=== PATIENT | male | born 1985 | race Caucasian/White ===

== ENCOUNTER 2017-06-17 20:07 | Observation (INO) | payer SELFPAY ==
[~2017-06-17] VITALS: Ht 180.3 cm; Wt 70.0 kg
[2017-06-17 20:10] VITALS: BP 121/64; PULSE 119; RESP 20; TEMP 99; O2SAT 97
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
[2017-06-17] MEDS ORDERED: SODIUM CHLOR 0.9% 1000 ML INJ 1,000 ML IV ONE (20:30)
[2017-06-17 20:43] LABS: AUTOMATED NEUTROPHIL # 5.8 TH/MM3 (1.8-7.7); BASOPHIL % 0.4 % (0.0-2.0); EOSINOPHIL # 0.1 TH/MM3 (0-0.4); EOSINOPHIL % 1.4 % (0.0-4.0); HEMATOCRIT 46.3 % (39.0-51.0); HEMO FLAGS DIFF FINAL; LYMPH % 15.5 % (9.0-44.0); LYMPHOCYTE # 1.2 TH/MM3 (1.0-4.8); MEAN CELL VOLUME 93.6 FL (80.0-100.0); MEAN CORPUSCULAR HEMOGLOBIN 31.5 PG (27.0-34.0); MEAN CORPUSCULAR HGB CONC 33.7 % (32.0-36.0); MONO % 8.2 % (0.0-8.0); NEUT % 74.5 % (16.0-70.0); PLATELET COUNT 323 TH/MM3 (150-450); RED BLOOD COUNT 4.94 MIL/MM3 (4.50-5.90); RED CELL DISTRIBUTION WIDTH 13.7 % (11.6-17.2); WHITE BLOOD COUNT 7.8 TH/MM3 (4.0-11.0)
[2017-06-17 21:01] LABS: PROTHROMBIN TIME - PATIENT 10.7 SEC (9.8-11.6)
[2017-06-17 21:37] LABS: BICARBONATE 22.9 MEQ/L (21.0-32.0); POTASSIUM 3.7 MEQ/L (3.5-5.1)
[2017-06-17 21:45] VITALS: BP 130/60; PULSE 99; RESP 18; O2SAT 98
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
[2017-06-17 22:47] VITALS: BP 117/52; PULSE 92; RESP 16; O2SAT 99
[2017-06-17 23:49] VITALS: BP 114/51; PULSE 86; RESP 16; O2SAT 99
[2017-06-18] VITALS (11 sets, daily range): BP systolic 113–133; BP diastolic 58–75; PULSE 64–98; RESP 16–20; TEMP 97.8–98.6; O2SAT 95–98
[2017-06-18] MEDS ORDERED: LACTULOSE SYRUP 20 GM/30 ML CUP PO PRN (03:15)
[2017-06-18] MEDS ORDERED: HALOPERIDOL LACTATE 5 MG/ML AMP IM PRN (03:15)
[2017-06-18] MEDS ORDERED: MAGNESIUM HYDROXIDE SUSP 30 ML CUP PO PRN (03:15)
[2017-06-18] MEDS ORDERED: BISACODYL 10 MG SUPP RECTAL PRN (03:15)
[2017-06-18] MEDS ORDERED: SODIUM CHLORIDE 0.9% FLUSH 10 ML FLUSH IV FLUSH PRN (03:15)
[2017-06-18] MEDS ORDERED: FLUMAZENIL 0.5 MG/5 ML VIAL IV PUSH PRN (03:15)
[2017-06-18] MEDS ORDERED: ACETAMINOPHEN 325 MG TAB PO PRN (03:15)
[2017-06-18] MEDS ORDERED: SENNOSIDES 8.6 MG TAB PO PRN (03:15)
[2017-06-18] MEDS ORDERED: LORazepam 2 MG TAB PO PRN (03:15)
[2017-06-18] MEDS ORDERED: ONDANSETRON HCL 4 MG/2 ML VIAL IVP PRN (03:15)
[2017-06-18] MEDS ORDERED: LORazepam 2 MG/ML VIAL IV PUSH PRN ×5 (03:15)
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
[2017-06-18] MEDS: SODIUM CHLOR 0.9% 1000 ML INJ 1,000 ML IV SCH ×3 (03:28→23:53)
[2017-06-18] MEDS: THIAMINE INJ 100 MG in SODIUM CHLORIDE 0.9% INJ 100 ML IV SCH (07:19)
--- NOTE | 2017-06-18 07:41 | EKG ---
Date Performed: 06/17/2017 Time Performed: 20:20:44 PTAGE: 89 years EKG: SINUS TACHYCARDIA ABNORMAL RHYTHM ECG NO PREVIOUS TRACING DOCTOR: Grayson Curry Interpretating Date/Time 06/18/2017 07:40:02
[2017-06-18] MEDS: FOLIC ACID 1 MG TAB PO SCH (08:03)
[2017-06-18] MEDS: MULTIVITAMINS/MINERALS THERAPEUTIC TAB PO SCH (08:03)
[2017-06-18] MEDS: DOCUSATE SODIUM 50 MG/SENNA 8.6 MG TAB PO SCH ×2 (08:03→20:14)
[2017-06-18] MEDS: SODIUM CHLORIDE 0.9% FLUSH 10 ML FLUSH IV FLUSH SCH ×2 (08:04→20:14)
[2017-06-18] MEDS: LORazepam 1 MG TAB PO PRN ×4 (11:50→23:46)
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
--- NOTE | 2017-06-18 19:26 | MG ---
cc: MARYLU MUNROE M.D. Lab No: Date: Age: Sex: M Race: REQUESTED BY: Neyda Reza. HISTORY: An EEG was obtained on this man with a history of seizures. DESCRIPTION OF THE RECORD: The patient is asleep and there are sleep spindles, beta activity and some K complexes. There is occasional brief awakening and alpha rhythms are seen bilaterally symmetrically. Photic stimulation disclosed no change. INTERPRETATION: Normal asleep EEG. MD DANGELO Salas/THOMAS /7:03 PM /7:20 PM
--- NOTE | 2017-06-18 21:03 | RADRPT ---
EXAM DATE/TIME: 06/18/2017 19:49 [facility] COMPARISON: No previous studies available for comparison. INDICATIONS : Seizures. MEDICAL HISTORY : None. SURGICAL HISTORY : Jaw surgery. ENCOUNTER: Initial ACUITY: 1 day PAIN SCORE: 0/10 LOCATION: cranial TECHNIQUE: Multiplanar, multisequence MRI of the brain was performed without contrast. FINDINGS: CEREBRUM: The ventricles are normal for age. No evidence of midline shift, mass lesion, hemorrhage or acute in farction. No extraaxial fluid collections are seen. The pituitary gland and suprasellar cistern are normal in configuration. WHITE MATTER: No significant signal abnormalities are seen in the white matter. POSTERIOR FOSSA: The cerebellum and brainstem are intact. The 4th ventricle is midline. The cerebellopontine angle is unremarkable. The cerebellar tonsils are normal in position. DIFFUSION IMAGING: No focal areas of restricted diffusion are seen. No evidence of acute infarction. EXTRACRANIAL: The visualized portions of the orbits and paranasal sinuses are unremarkable. CONCLUSION: No acute disease. No evidence of focal mass or edema. Darian Frost MD on June 18, 2017 at 21:00 Board Certified Radiologist. This report was verified electronically.
[2017-06-19 00:50] VITALS: BP 115/66; PULSE 74; RESP 16; TEMP 98.3; O2SAT 98
[2017-06-19 03:07] VITALS: BP 120/72; PULSE 73; RESP 17; TEMP 98.4; O2SAT 98
[2017-06-19] MEDS: LORazepam 1 MG TAB PO PRN ×2 (03:09→07:45)
[2017-06-19] MEDS: THIAMINE INJ 100 MG in SODIUM CHLORIDE 0.9% INJ 100 ML IV SCH (04:02)
[2017-06-19 07:33] VITALS: BP 120/71; PULSE 83; RESP 18; TEMP 98.3; O2SAT 97
[2017-06-19 07:37] LABS: AUTOMATED NEUTROPHIL # 4.2 TH/MM3 (1.8-7.7); BASOPHIL % 0.7 % (0.0-2.0); EOSINOPHIL # 0.1 TH/MM3 (0-0.4); EOSINOPHIL % 1.8 % (0.0-4.0); HEMATOCRIT 40.7 % (39.0-51.0); HEMO FLAGS DIFF FINAL; LYMPH % 17.1 % (9.0-44.0); LYMPHOCYTE # 1.1 TH/MM3 (1.0-4.8); MEAN CELL VOLUME 94.3 FL (80.0-100.0); MEAN CORPUSCULAR HEMOGLOBIN 31.7 PG (27.0-34.0); MEAN CORPUSCULAR HGB CONC 33.6 % (32.0-36.0); MONO % 12.8 % (0.0-8.0); NEUT % 67.6 % (16.0-70.0); PLATELET COUNT 233 TH/MM3 (150-450); RED BLOOD COUNT 4.32 MIL/MM3 (4.50-5.90); RED CELL DISTRIBUTION WIDTH 13.1 % (11.6-17.2); WHITE BLOOD COUNT 6.2 TH/MM3 (4.0-11.0)
[2017-06-19 07:57] LABS: ALT (GPT) 37 U/L (12-78); ANION GAP 7 MEQ/L (5-15); AST (GOT) 50 U/L (15-37); BICARBONATE 26.2 MEQ/L (21.0-32.0); BLOOD UREA NITROGEN 9 MG/DL (7-18); CHLORIDE 108 MEQ/L (98-107); GLOMERULAR FILTRATION RATE 80 ML/MIN (>89); POTASSIUM 3.6 MEQ/L (3.5-5.1); SODIUM (NA) 141 MEQ/L (136-145)
[2017-06-19 08:00] VITALS: PULSE 71
[2017-06-19 08:00] LABS: ALKALINE PHOSPHATASE 76 U/L (45-117); TOTAL BILIRUBIN ADULT 1.6 MG/DL (0.2-1.0)
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
[2017-06-19] MEDS: SODIUM CHLORIDE 0.9% FLUSH 10 ML FLUSH IV FLUSH SCH (09:00)
[2017-06-19] MEDS: MULTIVITAMINS/MINERALS THERAPEUTIC TAB PO SCH (09:06)
[2017-06-19] MEDS: FOLIC ACID 1 MG TAB PO SCH (09:06)
[2017-06-19] MEDS: DOCUSATE SODIUM 50 MG/SENNA 8.6 MG TAB PO SCH (09:06)
== END 2017-06-19 16:01 | disposition home or self-care (01) ==
LOC: NEPE 20:07 → NEDA 06-18 03:03 → EDBD 06-18 03:03 → NEPGCP 06-18 03:40
PROVIDERS: ADMIT Internal Medicine; ATTEND Internal Medicine
DX: G40.901 Epilepsy, unspecified, not intractable, with status epilepticus (principal); F10.129 Alcohol abuse with intoxication, unspecified; F14.10 Cocaine abuse, uncomplicated; S09.90XA Unspecified injury of head, initial encounter; S05.91XA Unspecified injury of right eye and orbit, initial encounter; Y04.0XXA Assault by unarmed brawl or fight, initial encounter; R94.31 Abnormal electrocardiogram [ECG] [EKG]; Y90.8 Blood alcohol level of 240 mg/100 ml or more; Z71.51 Drug abuse counseling and surveillance of drug abuser
CPT/HCPCS: 70450; 70486; 70551; 72125; 80048; 80053; 80307; 82948; 83605; 85025; 85610; 85730; 93005; 95819; 96361; 96365; 96366; 99285; G0378; J3411; J7030

== ENCOUNTER 2017-07-25 14:32 | Emergency (ER) | payer SELFPAY ==
[~2017-07-25] VITALS: Ht 180.3 cm; Wt 73.0 kg
[2017-07-25 14:34] VITALS: BP 137/83; PULSE 107; RESP 20; TEMP 98.2; O2SAT 100
[2017-07-25] MEDS ORDERED: AUGM875T3 PO (15:38)
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
[2017-07-25] MEDS ORDERED: CLIN300C5 PO (15:55)
== END 2017-07-25 15:46 | disposition home or self-care (01) ==
LOC: NEPK 14:32
DX: J32.9 Chronic sinusitis, unspecified (principal); R51 Headache
CPT/HCPCS: 99283

== ENCOUNTER 2018-02-12 14:09 | Emergency (ER) | payer SELFPAY ==
[~2018-02-12] VITALS: Ht 180.3 cm; Wt 80.0 kg
[~2018-02-12 14:09] MED LIST: CLIN300C5 PO
[2018-02-12 14:30] VITALS: BP 120/72; PULSE 92; RESP 16; TEMP 98.2; O2SAT 98
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
[2018-02-12] MEDS ORDERED: SULFAMETHOXAZOLE-TRIMETHOPRIM DS 800-160 MG TAB PO ONE (16:15)
[2018-02-12] MEDS ORDERED: KETOROLAC TROMETHAMINE 60 MG/2 ML (IM) VIAL IM ONE (16:15)
[2018-02-12] MEDS ORDERED: BACT800T5 PO (16:23)
[2018-02-12] MEDS ORDERED: DICL75TA PO (16:23)
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
== END 2018-02-12 17:11 | disposition home or self-care (01) ==
LOC: NEPK 14:09
DX: S62.361A Nondisplaced fracture of neck of second metacarpal bone, left hand, initial encounter for closed fracture (principal); W22.8XXA Striking against or struck by other objects, initial encounter; Y93.H3 Activity, building and construction
CPT/HCPCS: 73130; 96372; 99283; J1885; L3908

== ENCOUNTER 2018-07-08 01:50 | Observation (INO) ==
[2018-07-08 05:59] LABS: Baso # (Auto) 0.1 th/mm3 (0.0-0.2); Baso % (Auto) 1.3 % (0.0-2.0); Eos # (Auto) 0.1 th/mm3 (0.0-0.4); Hematocrit 45.4 % (39.0-51.0); Hemoglobin 15.7 gm/dL (13.0-17.0); Lymph # (Auto) 1.7 th/mm3 (1.0-4.8); Lymph % (Auto) 30.9 % (9.0-44.0); Mean Corpuscular HGB Conc 34.6 % (32.0-36.0); Mean Corpuscular Hemoglobin 32.9 pg (27.0-34.0); Mean Corpuscular Volume 95.2 fL (80.0-100.0); Mean Platelet Volume 6.9 fL (7.0-11.0); Mono # (Auto) 0.6 th/mm3 (0.0-0.9); Mono % (Auto) 10.5 % (0.0-8.0); Neut % (Auto) 55.3 % (16.0-70.0); Platelet Count 257 th/mm3 (150-450); Red Blood Count 4.77 mil/mm3 (4.50-5.90); White Blood Count 5.5 th/mm3 (4.0-11.0)
--- NOTE | 2018-07-08 06:17 | XR ---
EXAM DATE: 07/08/2018 6:12 AM EST AGE/SEX: 33 years / Male INDICATIONS: Chest pain worsening over the past week. CLINICAL DATA: This is the patient's initial encounter. Patient reports that signs and symptoms have been present for 1 week and indicates a pain score of 4/10. MEDICAL/SURGICAL HISTORY: None. . Jaw surgery. Bilateral wrist surgery. COMPARISON: No prior exams available for comparison. FINDINGS: A single AP view of the chest demonstrates the lungs to be symmetrically aerated without evidence of mass, infiltrate or effusion. The cardiomediastinal contours are unremarkable. Osseous structures a re intact. CONCLUSION: No acute disease Electronically signed by: Partha Hanna MD 07/08/2018 6:16 AM EST
[2018-07-08 06:21] LABS: Alanine Aminotransferase 67 U/L (12-78); Albumin 3.7 g/dL (3.4-5.0); Anion Gap 5 meq/L (5-15); Aspartate Aminotransferase 68 U/L (15-37); Blood Urea Nitrogen 7 mg/dL (7-18); Calcium 8.3 mg/dL (8.5-10.1); Carbon Dioxide 30.9 meq/L (21.0-32.0); Chloride 106 meq/L (98-107); Glomerular Filtration Rate Greater Than 89 mL/min (>89); Glucose,Random 82 mg/dL (74-106); Potassium 3.8 meq/L (3.5-5.1); Sodium 142 meq/L (136-145)
[2018-07-08 06:25] LABS: Alkaline Phosphatase 135 U/L (45-117); Creatine Kinase 118 U/L (39-308); Total Protein 8.2 g/dL (6.4-8.2)
[2018-07-08] MEDS ORDERED: Aluminum/Magnesium/Simethacone Susp 30 ML UDC PO ONE (06:38)
--- NOTE | 2018-07-08 06:42 | ED ---
HPI General Chief Complaint: Chest Pain Stated Complaint: Chest pain Time Seen by Provider: 07/08/18 05:29 History of Present Illness HPI narrative: This is a 33-year-old male with no significant past medical history, presents today with complaints of several weeks of intermittent epigastric/chest pain. Patient states that over the last several weeks, he is woken up and has had epigastric pain. He also reports nausea and vomiting. He denies any fevers, chills. The patient does smoke cigarettes and reports a 1 pack history since he was 12. Patient also reports drinking 2 hard alcohol drinks daily. He denies any fevers, chills. He denies any significant dyspnea or diaphoresis. He does have a strong cardiac family history. Related Data Home Medications Medication Instructions Recorded Confirmed No Known Home Medications 07/08/18 07/08/18 Allergies Allergy/AdvReac Type Severity Reaction Status Date / Time penicillin G Allergy Severe Swelling Verified 06/24/18 00:02 Review of Systems ROS: all other systems reviewed are negative Constitutional Denies chills and Denies fever(s) Eyes Reports system reviewed and no additional complaints, except as [facility] E[facility] Reports system reviewed and no additional complaints, except as [facility] Cardiovascular Reports chest pain, Denies chest pain at rest and Denies dyspnea Respiratory Reports cough (Occasional) and Denies dyspnea Gastrointestinal Reports abdominal pain (Epigastric at times), Reports nausea and Reports vomiting Genitourinary Reports system reviewed and no additional complaints, except as [facility] Musculoskeletal Reports system reviewed and no additional complaints, except as [facility] Neurologic Reports system reviewed and no additional complaints, except as [facility] Medical History Medical History Measles (Acute) Seizure (Acute) Surgical History Surgical History History of ankle surgery (Acute) History of mandibular surgery (Acute) S/P wrist surgery (Acute) Family History Family History Other Diabetes Hypertension Social History Social History Substance History: No History of Abuse Second Hand Smoke Exposure: Yes Smoking Status: Current every day smoker Tobacco Type: Cigarettes How Often Do You Have a Drink Containing Alcohol: 4 or more times a week Recent Travel in [facility] within the Last 8 Weeks: No Recent Out of Country Travel within the Last 8 Weeks: No Immunization History Tetanus Immunization: <5 Years Exam Narrative Exam Narrative: GENERAL: Well-developed well-nourished male in no acute respiratory distress. SKIN: Focused skin assessment warm/dry. HEAD: Atraumatic. Normocephalic. 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 No scleral icterus. No injection or drainage. ENT: No nasal bleeding or discharge. Mucous membranes pink and moist. NECK: Trachea midline. Supple. CARDIOVASCULAR: Regular rate and rhythm. No murmur appreciated. RESPIRATORY: No accessory muscle use. Clear to auscultation. Breath sounds equal bilaterally. GASTROINTESTINAL: Abdomen soft, non-tender, nondistended. No rebound or guarding. MUSCULOSKELETAL: No obvious deformities. No clubbing. No cyanosis. No edema. NEUROLOGICAL: Awake and alert. No obvious cranial nerve deficits. Motor grossly within normal limits. Normal speech. Course Initial Documented Vital Signs Temperature 97.2 F L 07/08/18 01:56 EDT Pulse Rate 98 H 07/08/18 01:56 EDT Respiratory Rate 18 07/08/18 01:56 EDT Blood Pressure 145/82 H 07/08/18 01:56 EDT Pulse Oximetry 98 07/08/18 01:56 EDT Last Documented Vital Signs Temperature 98.2 F 07/09/18 12:00 Pulse Rate 97 H 07/09/18 12:00 Respiratory Rate 16 07/09/18 12:00 Blood Pressure 138/83 07/09/18 12:00 Pulse Oximetry 100 07/09/18 12:00 Medical Decision Making [facility] Narrative Medical decision making narrative: 33-year-old male history of tobacco use, reported daily alcohol use, family history of cardiac disease, presents today with complaints of epigastric pain and chest pain. Patient states had it on and off times several weeks. The patient states he is just recently got health insurance and he is here to be evaluated for this. EKG and cardiac enzymes are within normal limits. Given his tobacco history and presentation, he will be admitted to the chest pain center for his atypical chest pain. I anticipate this will be negative however it does warrant rule out protocol. He has been given Maalox 30 cc x1 dose. Medical Screen Exam Complete: Yes Emergency Medical Condition: Yes Differential Diagnosis Differential Diagnosis: Peptic ulcer disease versus ACS versus musculoskeletal pain. Lab Data Result diagrams: 07/08/18 11:23 07/08/18 11:23 Lab Results 07/08/18 07/08/18 07/08/18 Range/Units 05:45 05:45 05:45 WBC 5.5 (4.0-11.0) th/mm3 RBC 4.77 (4.50-5.90) mil/mm3 Hgb 15.7 (13.0-17.0) gm/dL Hct 45.4 (39.0-51.0) % MCV 95.2 (80.0-100.0) fL MCH 32.9 (27.0-34.0) pg MCHC 34.6 (32.0-36.0) % RDW 15.0 (11.6-17.2) % Plt Count 257 (150-450) th/mm3 MPV 6.9 L (7.0-11.0) fL Neut % (Auto) 55.3 (16.0-70.0) % Lymph % (Auto) 30.9 (9.0-44.0) % Wilkinson % (Auto) 10.5 H (0.0-8.0) % Eos % (Auto) 2.0 (0.0-4.0) % Baso % (Auto) 1.3 (0.0-2.0) % Neut # (Auto) 3.0 (1.8-7.7) th/mm3 Lymph # (Auto) 1.7 (1.0-4.8) th/mm3 Wilkinson # (Auto) 0.6 (0.0-0.9) th/mm3 Eos # (Auto) 0.1 (0.0-0.4) th/mm3 Baso # (Auto) 0.1 (0.0-0.2) th/mm3 WBC Differential . Differential Comment Auto diff final Sodium 142 (136-145) meq/L Potassium 3.8 (3.5-5.1) meq/L Chloride 106 (98-107) meq/L Carbon Dioxide 30.9 (21.0-32.0) meq/L Anion Gap 5 (5-15) meq/L BUN 7 (7-18) mg/dL Creatinine 0.89 (0.60-1.30) mg/dL Estimated GFR Greater than 89 (>89) mL/min POC Glucose (68-110) mg/dl Random Glucose 82 (74-106) mg/dL Calcium 8.3 L (8.5-10.1) mg/dL Total Bilirubin 0.4 (0.2-1.0) mg/dL AST 68 H (15-37) U/L ALT 67 (12-78) U/L Alkaline Phosphatase 135 H (45-117) U/L Total Creatine Kinase 118 (39-308) U/L CK-MB (CK-2) Less than 1.0 (0.5-3.6) ng/mL Troponin I Less than 0.02 L (0.02-0.05) ng/mL Total Protein 8.2 (6.4-8.2) g/dL Albumin 3.7 (3.4-5.0) g/dL Lipase 70 L (73-393) U/L Stl C.difficile DNA Amp (Negative) St C. diff Tox Epid 027 (Negative) Urine Opiates Screen (Neg) Ur Barbiturates Screen (Neg) Ur Amphetamines Screen (Neg) U Benzodiazepines Scrn (Neg) Urine Cocaine Screen (Neg) U Cannabinoids Screen (Neg) Hepatitis A IgM Ab (Nonreactive) Hep Bs Antigen (Nonreactive) Hep B Core IgM Ab (Nonreactive) Hep C IgG Ab (Nonreactive) 07/08/18 07/08/18 07/08/18 Range/Units 08:20 10:15 11:23 WBC 5.9 (4.0-11.0) th/mm3 RBC 4.34 L (4.50-5.90) mil/mm3 Hgb 14.5 (13.0-17.0) gm/dL Hct 41.7 (39.0-51.0) % MCV 96.1 (80.0-100.0) fL MCH 33.3 (27.0-34.0) pg MCHC 34.6 (32.0-36.0) % RDW 15.0 (11.6-17.2) % Plt Count 231 (150-450) th/mm3 MPV 7.2 (7.0-11.0) fL Neut % (Auto) 71.6 H (16.0-70.0) % Lymph % (Auto) 15.9 (9.0-44.0) % Wilkinson % (Auto) 9.6 H (0.0-8.0) % Eos % (Auto) 1.7 (0.0-4.0) % Baso % (Auto) 1.2 (0.0-2.0) % Neut # (Auto) 4.2 (1.8-7.7) th/mm3 Lymph # (Auto) 0.9 L (1.0-4.8) th/mm3 Wilkinson # (Auto) 0.6 (0.0-0.9) th/mm3 Eos # (Auto) 0.1 (0.0-0.4) th/mm3 Baso # (Auto) 0.1 (0.0-0.2) th/mm3 WBC Differential . Differential Comment Auto diff final Sodium (136-145) meq/L Potassium (3.5-5.1) meq/L Chloride (98-107) meq/L Carbon Dioxide (21.0-32.0) meq/L Anion Gap (5-15) meq/L BUN (7-18) mg/dL Creatinine (0.60-1.30) mg/dL Estimated GFR (>89) mL/min POC Glucose (68-110) mg/dl Random Glucose (74-106) mg/dL Calcium (8.5-10.1) mg/dL Total Bilirubin (0.2-1.0) mg/dL AST (15-37) U/L ALT (12-78) U/L Alkaline Phosphatase (45-117) U/L Total Creatine Kinase 103 (39-308) U/L CK-MB (CK-2) (0.5-3.6) ng/mL Troponin I Less than 0.02 L (0.02-0.05) ng/mL Total Protein (6.4-8.2) g/dL Albumin (3.4-5.0) g/dL Lipase (73-393) U/L Stl C.difficile DNA Amp (Negative) St C. diff Tox Epid 027 (Negative) Urine Opiates Screen Neg (Neg) Ur Barbiturates Screen Neg (Neg) Ur Amphetamines Screen Neg (Neg) U Benzodiazepines Scrn Neg (Neg) Urine Cocaine Screen Neg (Neg) U Cannabinoids Screen Neg (Neg) Hepatitis A IgM Ab (Nonreactive) Hep Bs Antigen (Nonreactive) Hep B Core IgM Ab (Nonreactive) Hep C IgG Ab (Nonreactive) 07/08/18 07/08/18 07/08/18 Range/Units 11:23 12:25 13:23 WBC (4.0-11.0) th/mm3 RBC (4.50-5.90) mil/mm3 Hgb (13.0-17.0) gm/dL Hct (39.0-51.0) % MCV (80.0-100.0) fL MCH (27.0-34.0) pg MCHC (32.0-36.0) % RDW (11.6-17.2) % Plt Count (150-450) th/mm3 MPV (7.0-11.0) fL Neut % (Auto) (16.0-70.0) % Lymph % (Auto) (9.0-44.0) % Wilkinson % (Auto) (0.0-8.0) % Eos % (Auto) (0.0-4.0) % Baso % (Auto) (0.0-2.0) % Neut # (Auto) (1.8-7.7) th/mm3 Lymph # (Auto) (1.0-4.8) th/mm3 Wilkinson # (Auto) (0.0-0.9) th/mm3 Eos # (Auto) (0.0-0.4) th/mm3 Baso # (Auto) (0.0-0.2) th/mm3 WBC Differential Differential Comment Sodium 145 (136-145) meq/L Potassium 3.6 (3.5-5.1) meq/L Chloride 108 H (98-107) meq/L Carbon Dioxide 29.3 (21.0-32.0) meq/L Anion Gap 8 (5-15) meq/L BUN 8 (7-18) mg/dL Creatinine 0.89 (0.60-1.30) mg/dL Estimated GFR Greater than 89 (>89) mL/min POC Glucose 98 (68-110) mg/dl Random Glucose 80 (74-106) mg/dL Calcium 7.9 L (8.5-10.1) mg/dL Total Bilirubin 0.6 (0.2-1.0) mg/dL AST 61 H (15-37) U/L ALT 59 (12-78) U/L Alkaline Phosphatase 120 H (45-117) U/L Total Creatine Kinase (39-308) U/L CK-MB (CK-2) (0.5-3.6) ng/mL Troponin I (0.02-0.05) ng/mL Total Protein 7.1 D (6.4-8.2) g/dL Albumin 3.3 L (3.4-5.0) g/dL Lipase (73-393) U/L Stl C.difficile DNA Amp Negative (Negative) St C. diff Tox Epid 027 Negative (Negative) Urine Opiates Screen (Neg) Ur Barbiturates Screen (Neg) Ur Amphetamines Screen (Neg) U Benzodiazepines Scrn (Neg) Urine Cocaine Screen (Neg) U Cannabinoids Screen (Neg) Hepatitis A IgM Ab (Nonreactive) Hep Bs Antigen (Nonreactive) Hep B Core IgM Ab (Nonreactive) Hep C IgG Ab (Nonreactive) 07/08/18 07/08/18 07/09/18 Range/Units 13:28 17:54 00:43 WBC (4.0-11.0) th/mm3 RBC (4.50-5.90) mil/mm3 Hgb (13.0-17.0) gm/dL Hct (39.0-51.0) % MCV (80.0-100.0) fL MCH (27.0-34.0) pg MCHC (32.0-36.0) % RDW (11.6-17.2) % Plt Count (150-450) th/mm3 MPV (7.0-11.0) fL Neut % (Auto) (16.0-70.0) % Lymph % (Auto) (9.0-44.0) % Wilkinson % (Auto) (0.0-8.0) % Eos % (Auto) (0.0-4.0) % Baso % (Auto) (0.0-2.0) % Neut # (Auto) (1.8-7.7) th/mm3 Lymph # (Auto) (1.0-4.8) th/mm3 Wilkinson # (Auto) (0.0-0.9) th/mm3 Eos # (Auto) (0.0-0.4) th/mm3 Baso # (Auto) (0.0-0.2) th/mm3 WBC Differential Differential Comment Sodium (136-145) meq/L Potassium (3.5-5.1) meq/L Chloride (98-107) meq/L Carbon Dioxide (21.0-32.0) meq/L Anion Gap (5-15) meq/L BUN (7-18) mg/dL Creatinine (0.60-1.30) mg/dL Estimated GFR (>89) mL/min POC Glucose 94 86 (68-110) mg/dl Random Glucose (74-106) mg/dL Calcium (8.5-10.1) mg/dL Total Bilirubin (0.2-1.0) mg/dL AST (15-37) U/L ALT (12-78) U/L Alkaline Phosphatase (45-117) U/L Total Creatine Kinase 111 (39-308) U/L CK-MB (CK-2) (0.5-3.6) ng/mL Troponin I Less than 0.02 L (0.02-0.05) ng/mL Total Protein (6.4-8.2) g/dL Albumin (3.4-5.0) g/dL Lipase (73-393) U/L Stl C.difficile DNA Amp (Negative) St C. diff Tox Epid 027 (Negative) Urine Opiates Screen (Neg) Ur Barbiturates Screen (Neg) Ur Amphetamines Screen (Neg) U Benzodiazepines Scrn (Neg) Urine Cocaine Screen (Neg) U Cannabinoids Screen (Neg) Hepatitis A IgM Ab (Nonreactive) Hep Bs Antigen (Nonreactive) Hep B Core IgM Ab (Nonreactive) Hep C IgG Ab (Nonreactive) 07/09/18 07/09/18 Range/Units 03:30 07:32 WBC (4.0-11.0) th/mm3 RBC (4.50-5.90) mil/mm3 Hgb (13.0-17.0) gm/dL Hct (39.0-51.0) % MCV (80.0-100.0) fL MCH (27.0-34.0) pg MCHC (32.0-36.0) % RDW (11.6-17.2) % Plt Count (150-450) th/mm3 MPV (7.0-11.0) fL Neut % (Auto) (16.0-70.0) % Lymph % (Auto) (9.0-44.0) % Wilkinson % (Auto) (0.0-8.0) % Eos % (Auto) (0.0-4.0) % Baso % (Auto) (0.0-2.0) % Neut # (Auto) (1.8-7.7) th/mm3 Lymph # (Auto) (1.0-4.8) th/mm3 Wilkinson # (Auto) (0.0-0.9) th/mm3 Eos # (Auto) (0.0-0.4) th/mm3 Baso # (Auto) (0.0-0.2) th/mm3 WBC Differential Differential Comment Sodium (136-145) meq/L Potassium (3.5-5.1) meq/L Chloride (98-107) meq/L Carbon Dioxide (21.0-32.0) meq/L Anion Gap (5-15) meq/L BUN (7-18) mg/dL Creatinine (0.60-1.30) mg/dL Estimated GFR (>89) mL/min POC Glucose 77 (68-110) mg/dl Random Glucose (74-106) mg/dL Calcium (8.5-10.1) mg/dL Total Bilirubin (0.2-1.0) mg/dL AST (15-37) U/L ALT (12-78) U/L Alkaline Phosphatase (45-117) U/L Total Creatine Kinase (39-308) U/L CK-MB (CK-2) (0.5-3.6) ng/mL Troponin I (0.02-0.05) ng/mL Total Protein (6.4-8.2) g/dL Albumin (3.4-5.0) g/dL Lipase (73-393) U/L Stl C.difficile DNA Amp (Negative) St C. diff Tox Epid 027 (Negative) Urine Opiates Screen (Neg) Ur Barbiturates Screen (Neg) Ur Amphetamines Screen (Neg) U Benzodiazepines Scrn (Neg) Urine Cocaine Screen (Neg) U Cannabinoids Screen (Neg) Hepatitis A IgM Ab Nonreactive (Nonreactive) Hep Bs Antigen Nonreactive (Nonreactive) Hep B Core IgM Ab Nonreactive (Nonreactive) Hep C IgG Ab Nonreactive (Nonreactive) Imaging Data Radiologist's impression: Abdomen/Pelvis CT 07/08/18 00:00 CONCLUSION: 1. Hepatic steatosis. 2. 4 cm gastric diverticulum off the fundus. 3. No acute inflammatory bowel disease. Chest X-Ray 07/08/18 05:43 CONCLUSION: No acute disease Discharge Plan Discharge Disposition Patient Disposition: 07 Against Medical Advice Discharge Order Discharge Orders: AMA Discharge (Routine); Ordered 07/09/18 Ordered By: Joann Morales Discharge Details Diagnosis: Atypical chest pain, Epigastric abdominal pain Physicians Team ED Provider: Yunior Mcpherson Primary Care Provider: Sahil Paiz Attending Provider: Alex Lynn Other Providers: Nilda Mendoza Discharge Interventions Interventions: ED Discharge Assessment Last Done: 07/08/18 11:31 Vital Signs Last Done: 07/08/18 07:00 Status ED Status: Left Department Discharge Information Discharge Date/Time: 07/08/18 11:32
[2018-07-08 09:08] LABS: Creatine Kinase 103 U/L (39-308)
[2018-07-08] MEDS ORDERED: Haloperidol Inj 5 MG/ML Ampul IV.PUSH PRN (09:34)
[2018-07-08] MEDS: Folic Acid 1 MG Tablet PO SCH (10:09)
[2018-07-08] MEDS: Sod Chloride 0.9% Inj 1,000 ML IV.CONT SCH ×2 (10:09→22:28)
[2018-07-08] MEDS: Pantoprazole Inj 40 MG Vial IV.PUSH SCH ×2 (10:10→22:21)
[2018-07-08 10:38] LABS: Amphetamine Screen,Urine Neg (Neg); Barbiturate Screen,Urine Neg (Neg); Cannabinoid Screen,Urine Neg (Neg); Cocaine Screen,Urine Neg (Neg)
[2018-07-08 10:46] LABS: Opiate Screen,Urine Neg (Neg)
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
[2018-07-08] MEDS: LORazepam 1 MG Tablet PO PRN ×2 (11:47→22:20)
[2018-07-08] MEDS: Multivitamin/Minerals Therapeutic Tablet PO SCH (11:47)
[2018-07-08 12:33] LABS: Baso # (Auto) 0.1 th/mm3 (0.0-0.2); Baso % (Auto) 1.2 % (0.0-2.0); Eos # (Auto) 0.1 th/mm3 (0.0-0.4); Eos % (Auto) 1.7 % (0.0-4.0); Hematocrit 41.7 % (39.0-51.0); Hemoglobin 14.5 gm/dL (13.0-17.0); Lymph # (Auto) 0.9 th/mm3 (1.0-4.8); Lymph % (Auto) 15.9 % (9.0-44.0); Mean Corpuscular HGB Conc 34.6 % (32.0-36.0); Mean Corpuscular Hemoglobin 33.3 pg (27.0-34.0); Mean Corpuscular Volume 96.1 fL (80.0-100.0); Mean Platelet Volume 7.2 fL (7.0-11.0); Mono # (Auto) 0.6 th/mm3 (0.0-0.9); Mono % (Auto) 9.6 % (0.0-8.0); Neut # (Auto) 4.2 th/mm3 (1.8-7.7); Neut % (Auto) 71.6 % (16.0-70.0); Platelet Count 231 th/mm3 (150-450); Red Blood Count 4.34 mil/mm3 (4.50-5.90); White Blood Count 5.9 th/mm3 (4.0-11.0)
[2018-07-08 12:58] LABS: Albumin 3.3 g/dL (3.4-5.0); Anion Gap 8 meq/L (5-15); Aspartate Aminotransferase 61 U/L (15-37); Blood Urea Nitrogen 8 mg/dL (7-18); Calcium 7.9 mg/dL (8.5-10.1); Carbon Dioxide 29.3 meq/L (21.0-32.0); Chloride 108 meq/L (98-107); Glomerular Filtration Rate Greater Than 89 mL/min (>89); Glucose,Random 80 mg/dL (74-106); Potassium 3.6 meq/L (3.5-5.1); Sodium 145 meq/L (136-145)
[2018-07-08 13:00] LABS: Alanine Aminotransferase 59 U/L (12-78); Alkaline Phosphatase 120 U/L (45-117); Total Protein 7.1 g/dL (6.4-8.2)
[2018-07-08] MEDS ORDERED: Diatrizoate Meglum/Diatrizoate Sod Liq 9 ML UDC PO ONE (13:00)
--- NOTE | 2018-07-08 13:02 | P.CONGI ---
History of Present Illness Consult date: 07/08/18 Chief complaint: chest pain History of Present Illness: This is a very pleasant 33 y/o WM with anxiety, alcohol abuse who presented with one month hx of epigastric pain, nausea/vomiting and diarrhea. Patient has been to rehab last yr and was successful in regards to abstaining from alcohol up until about 4 months ago. He now drinks about 3-5 alcoholic beverages per night. States, N/V is daily, anytime of the day, can wake him up at night, this is sometimes food or gastric burning material. Diarrhea is normally in the am. The pain is severe all day every day. He denies any NSAID use. Denies illicit drugs. He always had stomach issues, recalls having EGD when was in fourth grade, and was on Zantac in liquid form. States his older sister has Crohn dz. Denies melena or hematochezia. <Zaira Maravilla - Last Filed: 07/08/18 12:50> Review of Systems All other systems reviewed negative except as stated in HPI <Zaira Maravilla - Last Filed: 07/08/18 12:50> PMFSH - History History Provided By: Patient - Medical History Medical History: Medical History (Last Updated 07/08/18 @ 05:37 by Taya Tom RN) Measles Seizure - Surgical History Surgical History: Surgical History (Last Reviewed 07/08/18 @ 05:35 by Taya Tom RN) History of ankle surgery History of mandibular surgery S/P wrist surgery - Family History Family History: Family History (Last Updated 07/08/18 @ 05:38 by Taya Tom RN) Other Diabetes Hypertension - Tobacco History Second Hand Smoke Exposure: Yes Tobacco Use In Past 30 Days: Yes Smoking Status: Current every day smoker Tobacco Type: Cigarettes - Alcohol History How Often Do You Have a Drink Containing Alcohol: 4 or more times a week - Substance Use History Substance History: No History of Abuse - Travel History Recent Travel in the [place] Within the Last 8 Weeks: No Recent Travel Out of the Country Within the Last 8 Weeks: No - Immunization History Tetanus Immunization: <5 Years <Zaira Maravilla - Last Filed: 07/08/18 12:50> - Medical History Medical History: Medical History (Last Updated 07/08/18 @ 05:37 by Taya Tom RN) Measles Seizure - Surgical History Surgical History: Surgical History (Last Reviewed 07/08/18 @ 05:35 by Taya Tom RN) History of ankle surgery History of mandibular surgery S/P wrist surgery - Family History Family History: Family History (Last Updated 07/08/18 @ 05:38 by Taya Tom RN) Other Diabetes Hypertension <RejiNilda - Last Filed: 07/08/18 19:23> Medications and Allergies Active Medications: Active Medications Diatrizoate Meglum/Diatrizoate Sod ( Gastrovera Liq) 18 ml PO ONCE ONE; Protocol Stop: 07/08/18 12:49 Flumazenil (Romazecon Inj) 0.2 mg IV.PUSH Q1M PRN PRN Reason: OVERSEDATION Folic Acid (Folic Acid) 1 mg PO DAILY [facility] Stop: 07/13/18 09:44 Last Admin: 07/08/18 10:09 Dose: 1 mg Haloperidol Lactate (Haldol Inj) 1 mg IV.PUSH Q15M PRN PRN Reason: for severe agitation Sodium Chloride (Ns Inj) 1,000 mls @ 100 mls/hr IV.CONT .Q10H [facility] Last Admin: 07/08/18 10:09 Dose: 100 mls/hr Lorazepam (Ativan Inj) 2 mg IV.PUSH Q15M PRN PRN Reason: for CIWA > 20 Lorazepam (Ativan Inj) 2 mg IV.PUSH Q1H PRN PRN Reason: for CIWA 15-20 Lorazepam (Ativan Inj) 2 mg IV.PUSH Q2H PRN PRN Reason: for CIWA 11-14 Lorazepam (Ativan) 1 mg PO Q4H PRN PRN Reason: for CIWA 8-10 Last Admin: 07/08/18 11:47 Dose: 1 mg Lorazepam (Ativan) 2 mg PO Q2H PRN PRN Reason: for CIWA 11-14 Lorazepam (Ativan Inj) 1 mg IV.PUSH Q4H PRN PRN Reason: for CIWA 8-10 Multivitamins/Minerals (Theragran-M) 1 tab PO DAILY [facility] Stop: 07/13/18 09:44 Last Admin: 07/08/18 11:47 Dose: 1 tab Nicotine (Habitrol 14 Mg Patch.24 Hr) 1 patch T-DERMAL DAILY [facility] Last Admin: 07/08/18 10:08 Dose: 1 patch Ondansetron HCl (Zofran Inj) 4 mg IV.PUSH Q6H PRN PRN Reason: NAUSEA OR VOMITING Last Admin: 07/08/18 11:41 Dose: 4 mg Pantoprazole Sodium (Protonix Inj) 40 mg IV.PUSH Q12H [facility] Last Admin: 07/08/18 10:10 Dose: 40 mg Polyethylene Glycol/Electrolytes (Colyte Liq) 4,000 ml PO ONCE ONE Stop: 07/08/18 16:01 Sodium Chloride (Ns Flush) 2 ml IV.FLUSH UNSCH PRN PRN Reason: FLUSH AFTER USING IV ACCESS Sodium Chloride (Ns Flush) 2 ml IV.FLUSH BID [facility] Last Admin: 07/08/18 10:09 Dose: 2 ml Sodium Chloride (Ns Flush) 2 ml IV.FLUSH PRN PRN PRN Reason: FLUSH AFTER USING IV ACCESS Thiamine HCl (Vitamin B1) 100 mg PO DAILY [facility] Last Admin: 07/08/18 10:09 Dose: 100 mg <Zaira Maravilla - Last Filed: 07/08/18 12:50> Active Medications: Active Medications Chlordiazepoxide (Librium) 25 mg PO Q8H [facility] Last Admin: 07/08/18 15:36 Dose: 25 mg Flumazenil (Romazecon Inj) 0.2 mg IV.PUSH Q1M PRN PRN Reason: OVERSEDATION Folic Acid (Folic Acid) 1 mg PO DAILY [facility] Stop: 07/13/18 09:44 Last Admin: 07/08/18 10:09 Dose: 1 mg Haloperidol Lactate (Haldol Inj) 1 mg IV.PUSH Q15M PRN PRN Reason: for severe agitation Sodium Chloride (Ns Inj) 1,000 mls @ 100 mls/hr IV.CONT .Q10H [facility] Last Infusion: 07/08/18 13:35 Dose: 100 mls/hr Lorazepam (Ativan Inj) 2 mg IV.PUSH Q15M PRN PRN Reason: for CIWA > 20 Lorazepam (Ativan Inj) 2 mg IV.PUSH Q1H PRN PRN Reason: for CIWA 15-20 Lorazepam (Ativan Inj) 2 mg IV.PUSH Q2H PRN PRN Reason: for CIWA 11-14 Lorazepam (Ativan) 1 mg PO Q4H PRN PRN Reason: for CIWA 8-10 Last Admin: 07/08/18 11:47 Dose: 1 mg Lorazepam (Ativan) 2 mg PO Q2H PRN PRN Reason: for CIWA 11-14 Lorazepam (Ativan Inj) 1 mg IV.PUSH Q4H PRN PRN Reason: for CIWA 8-10 Multivitamins/Minerals (Theragran-M) 1 tab PO DAILY [facility] Stop: 07/13/18 09:44 Last Admin: 07/08/18 11:47 Dose: 1 tab Nicotine (Habitrol 14 Mg Patch.24 Hr) 1 patch T-DERMAL DAILY [facility] Last Admin: 07/08/18 10:08 Dose: 1 patch Ondansetron HCl (Zofran Inj) 4 mg IV.PUSH Q6H PRN PRN Reason: NAUSEA OR VOMITING Last Admin: 07/08/18 17:48 Dose: 4 mg Pantoprazole Sodium (Protonix Inj) 40 mg IV.PUSH Q12H [facility] Last Admin: 07/08/18 10:10 Dose: 40 mg Sodium Chloride (Ns Flush) 2 ml IV.FLUSH UNSCH PRN PRN Reason: FLUSH AFTER USING IV ACCESS Sodium Chloride (Ns Flush) 2 ml IV.FLUSH BID [facility] Last Admin: 07/08/18 10:09 Dose: 2 ml Sodium Chloride (Ns Flush) 2 ml IV.FLUSH PRN PRN PRN Reason: FLUSH AFTER USING IV ACCESS Thiamine HCl (Vitamin B1) 100 mg PO DAILY [facility] Last Admin: 07/08/18 10:09 Dose: 100 mg <Nilda Mendoza - Last Filed: 07/08/18 19:23> Allergies Allergy/AdvReac Type Severity Reaction Status Date / Time penicillin G Allergy Severe Swelling Verified 06/24/18 00:02 Home Medications Medication Instructions Recorded Confirmed Type No Known Home Medications 07/08/18 07/08/18 History Exam Vital signs: Vital Signs 07/08/18 01:56 EDT 07/08/18 05:35 07/08/18 06:01 Temperature 97.2 F L Pulse Rate 98 H 84 Respiratory Rate 18 20 Blood Pressure 145/82 H 129/93 H Pulse Oximetry 98 99 98 07/08/18 07:00 07/08/18 07:06 07/08/18 08:12 Temperature Pulse Rate 87 87 Respiratory Rate 16 Blood Pressure 123/73 Pulse Oximetry 96 96 07/08/18 10:05 07/08/18 12:00 Temperature 98.4 F Pulse Rate 92 H Respiratory Rate 16 Blood Pressure 141/86 H Pulse Oximetry 98 99 Intake & Output 07/07/18 07/08/18 07/08/18 19:59 06:59 18:59 Weight 72.575 kg Other: Weight On Admission 72.575 kg - Constitutional no acute distress - Routine HEENT Exam Head: Present: normocephalic - Routine Respiratory Exam Present: CTA bilaterally - Routine Cardiovascular Exam Present: RRR - Routine Abdominal Exam Present: soft, normoactive bowel sounds, tenderness. Absent: distended, rebound - Routine Skin Exam Present: intact, dry. Absent: jaundice - Routine Neurological Exam Present: alert, oriented X3 <Zaira Maravilla - Last Filed: 07/08/18 12:50> Vital signs: Vital Signs 07/08/18 01:56 EDT 07/08/18 05:35 07/08/18 06:01 Temperature 97.2 F L Pulse Rate 98 H 84 Respiratory Rate 18 20 Blood Pressure 145/82 H 129/93 H Pulse Oximetry 98 99 98 07/08/18 07:00 07/08/18 07:06 07/08/18 08:12 Temperature Pulse Rate 87 87 Respiratory Rate 16 Blood Pressure 123/73 Pulse Oximetry 96 96 07/08/18 10:05 07/08/18 12:00 07/08/18 15:29 Temperature 98.4 F Pulse Rate 92 H 99 H Respiratory Rate 16 Blood Pressure 141/86 H Pulse Oximetry 98 99 07/08/18 16:00 Temperature 97.8 F Pulse Rate 110 H Respiratory Rate 16 Blood Pressure 136/86 Pulse Oximetry 98 Intake & Output 07/08/18 07/08/18 07/09/18 06:59 18:59 06:59 Intake Total 573 / 573 Balance 573 / 573 Weight 72.575 kg Intake: IV 100 / 100 NS Inj 1,000 ML @ 100 mls/hr IV 100 / 100 .CONT .Q10H [facility] Rx#:[id number] Oral 473 / 473 Other: Weight On Admission 72.575 kg <Bratu,Nilda - Last Filed: 07/08/18 19:23> Results - Labs CBC & Chem 7: 07/08/18 11:23 07/08/18 05:45 Labs: Laboratory Results - last 24 hr 07/08/18 07/08/18 07/08/18 05:45 05:45 05:45 WBC 5.5 RBC 4.77 Hgb 15.7 Hct 45.4 MCV 95.2 MCH 32.9 MCHC 34.6 RDW 15.0 Plt Count 257 MPV 6.9 L Neut % (Auto) 55.3 Lymph % (Auto) 30.9 Price % (Auto) 10.5 H Eos % (Auto) 2.0 Baso % (Auto) 1.3 Neut # (Auto) 3.0 Lymph # (Auto) 1.7 Price # (Auto) 0.6 Eos # (Auto) 0.1 Baso # (Auto) 0.1 WBC Differential . Differential Comment Auto diff final Sodium 142 Potassium 3.8 Chloride 106 Carbon Dioxide 30.9 Anion Gap 5 BUN 7 Creatinine 0.89 Estimated GFR Greater than 89 Random Glucose 82 Calcium 8.3 L Total Bilirubin 0.4 AST 68 H ALT 67 Alkaline Phosphatase 135 H Total Creatine Kinase 118 CK-MB (CK-2) Less than 1.0 Troponin I Less than 0.02 L Total Protein 8.2 Albumin 3.7 Lipase 70 L Urine Opiates Screen Ur Barbiturates Screen Ur Amphetamines Screen U Benzodiazepines Scrn Urine Cocaine Screen U Cannabinoids Screen 07/08/18 07/08/18 07/08/18 08:20 10:15 11:23 WBC 5.9 RBC 4.34 L Hgb 14.5 Hct 41.7 MCV 96.1 MCH 33.3 MCHC 34.6 RDW 15.0 Plt Count 231 MPV 7.2 Neut % (Auto) 71.6 H Lymph % (Auto) 15.9 Price % (Auto) 9.6 H Eos % (Auto) 1.7 Baso % (Auto) 1.2 Neut # (Auto) 4.2 Lymph # (Auto) 0.9 L Price # (Auto) 0.6 Eos # (Auto) 0.1 Baso # (Auto) 0.1 WBC Differential . Differential Comment Auto diff final Sodium Potassium Chloride Carbon Dioxide Anion Gap BUN Creatinine Estimated GFR Random Glucose Calcium Total Bilirubin AST ALT Alkaline Phosphatase Total Creatine Kinase 103 CK-MB (CK-2) Troponin I Less than 0.02 L Total Protein Albumin Lipase Urine Opiates Screen Neg Ur Barbiturates Screen Neg Ur Amphetamines Screen Neg U Benzodiazepines Scrn Neg Urine Cocaine Screen Neg U Cannabinoids Screen Neg - Imaging Impressions Chest X-Ray 07/08/18 05:43 CONCLUSION: No acute disease <Zaira Maravilla - Last Filed: 07/08/18 12:50> - Labs CBC & Chem 7: 07/08/18 11:23 07/08/18 11:23 Labs: Laboratory Results - last 24 hr 07/08/18 07/08/18 07/08/18 05:45 05:45 05:45 WBC 5.5 RBC 4.77 Hgb 15.7 Hct 45.4 MCV 95.2 MCH 32.9 MCHC 34.6 RDW 15.0 Plt Count 257 MPV 6.9 L Neut % (Auto) 55.3 Lymph % (Auto) 30.9 Price % (Auto) 10.5 H Eos % (Auto) 2.0 Baso % (Auto) 1.3 Neut # (Auto) 3.0 Lymph # (Auto) 1.7 Price # (Auto) 0.6 Eos # (Auto) 0.1 Baso # (Auto) 0.1 WBC Differential . Differential Comment Auto diff final Sodium 142 Potassium 3.8 Chloride 106 Carbon Dioxide 30.9 Anion Gap 5 BUN 7 Creatinine 0.89 Estimated GFR Greater than 89 POC Glucose Random Glucose 82 Calcium 8.3 L Total Bilirubin 0.4 AST 68 H ALT 67 Alkaline Phosphatase 135 H Total Creatine Kinase 118 CK-MB (CK-2) Less than 1.0 Troponin I Less than 0.02 L Total Protein 8.2 Albumin 3.7 Lipase 70 L Stl C.difficile DNA Amp St C. diff Tox Epid 027 Urine Opiates Screen Ur Barbiturates Screen Ur Amphetamines Screen U Benzodiazepines Scrn Urine Cocaine Screen U Cannabinoids Screen 07/08/18 07/08/18 07/08/18 08:20 10:15 11:23 WBC 5.9 RBC 4.34 L Hgb 14.5 Hct 41.7 MCV 96.1 MCH 33.3 MCHC 34.6 RDW 15.0 Plt Count 231 MPV 7.2 Neut % (Auto) 71.6 H Lymph % (Auto) 15.9 Price % (Auto) 9.6 H Eos % (Auto) 1.7 Baso % (Auto) 1.2 Neut # (Auto) 4.2 Lymph # (Auto) 0.9 L Price # (Auto) 0.6 Eos # (Auto) 0.1 Baso # (Auto) 0.1 WBC Differential . Differential Comment Auto diff final Sodium Potassium Chloride Carbon Dioxide Anion Gap BUN Creatinine Estimated GFR POC Glucose Random Glucose Calcium Total Bilirubin AST ALT Alkaline Phosphatase Total Creatine Kinase 103 CK-MB (CK-2) Troponin I Less than 0.02 L Total Protein Albumin Lipase Stl C.difficile DNA Amp St C. diff Tox Epid 027 Urine Opiates Screen Neg Ur Barbiturates Screen Neg Ur Amphetamines Screen Neg U Benzodiazepines Scrn Neg Urine Cocaine Screen Neg U Cannabinoids Screen Neg 07/08/18 07/08/18 07/08/18 11:23 12:25 13:23 WBC RBC Hgb Hct MCV MCH MCHC RDW Plt Count MPV Neut % (Auto) Lymph % (Auto) Price % (Auto) Eos % (Auto) Baso % (Auto) Neut # (Auto) Lymph # (Auto) Price # (Auto) Eos # (Auto) Baso # (Auto) WBC Differential Differential Comment Sodium 145 Potassium 3.6 Chloride 108 H Carbon Dioxide 29.3 Anion Gap 8 BUN 8 Creatinine 0.89 Estimated GFR Greater than 89 POC Glucose 98 Random Glucose 80 Calcium 7.9 L Total Bilirubin 0.6 AST 61 H ALT 59 Alkaline Phosphatase 120 H Total Creatine Kinase CK-MB (CK-2) Troponin I Total Protein 7.1 D Albumin 3.3 L Lipase Stl C.difficile DNA Amp Negative St C. diff Tox Epid 027 Negative Urine Opiates Screen Ur Barbiturates Screen Ur Amphetamines Screen U Benzodiazepines Scrn Urine Cocaine Screen U Cannabinoids Screen 07/08/18 07/08/18 13:28 17:54 WBC RBC Hgb Hct MCV MCH MCHC RDW Plt Count MPV Neut % (Auto) Lymph % (Auto) Price % (Auto) Eos % (Auto) Baso % (Auto) Neut # (Auto) Lymph # (Auto) Price # (Auto) Eos # (Auto) Baso # (Auto) WBC Differential Differential Comment Sodium Potassium Chloride Carbon Dioxide Anion Gap BUN Creatinine Estimated GFR POC Glucose 94 Random Glucose Calcium Total Bilirubin AST ALT Alkaline Phosphatase Total Creatine Kinase 111 CK-MB (CK-2) Troponin I Less than 0.02 L Total Protein Albumin Lipase Stl C.difficile DNA Amp St C. diff Tox Epid 027 Urine Opiates Screen Ur Barbiturates Screen Ur Amphetamines Screen U Benzodiazepines Scrn Urine Cocaine Screen U Cannabinoids Screen - Imaging Impressions Abdomen/Pelvis CT 07/08/18 00:00 CONCLUSION: 1. Hepatic steatosis. 2. 4 cm gastric diverticulum off the fundus. 3. No acute inflammatory bowel disease. Chest X-Ray 07/08/18 05:43 CONCLUSION: No acute disease <Nilda Mendoza - Last Filed: 07/08/18 19:23> Assessment and Plan - Plan -One month hx of epigastric pain, nausea/vomiting and diarrhea. States, N/V is daily, anytime of the day, can wake him up at night, this is sometimes food or gastric burning material. Diarrhea is normally in the am. The pain is severe all day every day. He denies any NSAID use. Denies illicit drugs. He always had stomach issues, recalls having EGD when was in fourth grade, and was on Zantac in liquid form. States his older sister has Crohn dz. Denies melena or hematochezia. - Elevated LFTs- consistent with alcohol consumption - Hx of alcohol abuse- has been to rehab last yr and was successful in regards to abstaining from alcohol up until about 4 months ago. He now drinks about 3-5 alcoholic beverages per night. - anxiety per attending Plan: - clears - EGD/colonoscopy in the am to r/o celiac or IBD or PUD - Golytely today - NPO mn - CT of a/p - Stools are pending - Anti emetic meds - Alcohol cessation, pt counselled - DT's precautions per attending - Hepatitis panel - Supportive care - Pt seen and examined by Dr. Mendoza and myself and this note is written on her behalf. <Zaira Maravilla - Last Filed: 07/08/18 12:50> - Attending Attestation seen, examined agree with above <Nilda Mendoza - Last Filed: 07/08/18 19:23>
[2018-07-08 14:08] LABS: Creatine Kinase 111 U/L (39-308)
[2018-07-08] MEDS: chlordiazePOXIDE 25 MG Capsule PO SCH ×2 (15:36→23:05)
[2018-07-08] MEDS ORDERED: PEG 3350/E-Lyte Soln 4000 ML Bottle PO ONE (16:00)
--- NOTE | 2018-07-08 16:37 | CT ---
EXAM DATE: 07/08/2018 4:16 PM EST AGE/SEX: 33 years / Male INDICATIONS: Upper abdomen pain with nausea, vomiting and diarrhea for one month. CLINICAL DATA: This is the patient's initial encounter. Patient reports that signs and symptoms have been present for 1 month and indicates a pain score of 7/10. MEDICAL/SURGICAL HISTORY: Seizures. None. ORAL CONTRAST: Partial prescribed oral contrast ingested. RADIATION DOSE: 6.64 CTDI (mGy) COMPARISON: No prior exams available for comparison. TECHNIQUE: Multiple contiguous axial images were obtained through the abdomen and pelvis following b olus infusion of 90 ml Omnipaque 350 (iohexol) nonionic water-soluble contrast as a single exam dos e. Partial prescribed oral contrast ingested. Using automated exposure control and adjustment of the mA and/or kV according to patient size, radiation dose was kept as low as reasonably achievable to o btain optimal diagnostic quality images. DICOM format image data is available electronically for rev iew and comparison. FINDINGS: Lower Lungs: The visualized lower lungs are clear. Liver: The liver appears diffusely hypodense. There are no focal space-occupying lesions or biliary d uct dilatation. There are no calcified gallstones. Spleen: Homogeneous density without enlargement. Pancreas: Unremarkable without mass or calcification. Kidneys: Normal in size and shape. No evidence of mass or hydronephrosis. Adrenal Glands: Unremarkable. Aorta: The aorta and proximal iliac vessels are grossly unremarkable without aneurysmal dilation. Bowel/Mesentery: A gastric diverticulum measuring 4 cm is noted projecting off the posterior medial m argin of the gastric fundus. The bowel loops are grossly unremarkable. The cecum and sigmoid colon have a normal configuration. Abdominal Wall: Intact. Retroperitoneum: No evidence of adenopathy in the retrocrural, para-aortic, or deep pelvic regions. Bladder: Contours are smooth. Reproductive Organs: No abnormal masses or calcifications seen. Inguinal: The inguinal region is unremarkable without evidence of adenopathy. Bony Structures: Unremarkable. CONCLUSION: 1. Hepatic steatosis. 2. 4 cm gastric diverticulum off the fundus. 3. No acute inflammatory bowel disease. Electronically signed by: Darian Frost MD 07/08/2018 4:35 PM EST
--- NOTE | 2018-07-08 22:36 | ECG ---
Date Performed: 07/08/2018 Time Performed: 08:19:09 PTAGE: 33 years EKG: Sinus rhythm NORMAL ECG PREVIOUS TRACING : 07/08/2018 06.00 Since the previous tracing, no significant change noted DOCTOR: Zacarias Yates Interpretating Date/Time 07/08/2018 22:36:01
--- NOTE | 2018-07-08 22:40 | ECG ---
Date Performed: 07/08/2018 Time Performed: 06:00:17 PTAGE: 33 years EKG: Sinus rhythm NORMAL ECG PREVIOUS TRACING : 07/08/2018 01.14 Compared to previous tracing, rate has decreased DOCTOR: Zacarias Yates Interpretating Date/Time 07/08/2018 22:38:33
--- NOTE | 2018-07-08 22:48 | ECG ---
Date Performed: 07/08/2018 Time Performed: 01:14:33 PTAGE: 33 years EKG: SINUS TACHYCARDIA BORDERLINE RIGHT AXIS DEVIATION POSSIBLE RIGHT VENTRICULAR CONDUCTION DEL AY ABNORMAL RHYTHM ECG PREVIOUS TRACING : 06/24/2018 00.23 Since the previous tracing, no significant change noted DOCTOR: Zacarias Yates Interpretating Date/Time 07/08/2018 22:46:50
[2018-07-09] MEDS: Sod Chloride 0.9% Inj 1,000 ML IV.CONT SCH ×2 (05:15→06:13)
[2018-07-09] MEDS ORDERED: Chlorhexidine Gluconate 2% 1 Pack (2 Cloths) TOPICAL ONE (05:37)
[2018-07-09 05:54] LABS: Hepatitis A IgM Antibody Nonreactive (Nonreactive); Hepatitits B Surface Antigen Nonreactive (Nonreactive)
[2018-07-09] MEDS ORDERED: Sodium Chlor 0.9% Inj 500 ML IV.SIG SCH (06:00)
[2018-07-09] MEDS: chlordiazePOXIDE 25 MG Capsule PO SCH (08:02)
[2018-07-09] MEDS: Folic Acid 1 MG Tablet PO SCH (08:02)
[2018-07-09] MEDS: Multivitamin/Minerals Therapeutic Tablet PO SCH (08:02)
[2018-07-09 08:05] VITALS: RESP 16
--- NOTE | 2018-07-09 11:01 | P.PNIM ---
Subjective Interval history: Pt had to prep for colonoscopy yesterday so he was having significant stooling. His stool studies for C. diff are negative. Pts chest discomfort is improving. Physical Exam Vital signs: Last Vital Signs Temp 98.8 F 07/09/18 08:00 Pulse 87 07/09/18 08:00 Resp 16 07/09/18 08:00 BP 121/74 07/09/18 08:00 Pulse Ox 99 07/09/18 08:00 Narrative: GENERAL: NAD, AAOx3 CARDIO: Regular RESP: No accessory muscle use. Clear to auscultation. Breath sounds equal bilaterally. ABD: +BS, soft, mild lower abd tenderness, nondistended. Hepatic and splenic margins not palpable. EXT: Extremities without clubbing, cyanosis, or edema. No obvious deformities. Results Labs CBC & Chem 7: 07/08/18 11:23 07/08/18 11:23 Imaging Abdomen/Pelvis CT 07/08/18 00:00 CONCLUSION: 1. Hepatic steatosis. 2. 4 cm gastric diverticulum off the fundus. 3. No acute inflammatory bowel disease. Chest X-Ray 07/08/18 05:43 CONCLUSION: No acute disease Assessment and Plan Assessment (1) Alcohol dependence with alcohol-induced mood disorder: Code(s): F10.24 - Alcohol dependence with alcohol-induced mood disorder Status: Chronic (2) Anxiety: Code(s): F41.9 - Anxiety disorder, unspecified Status: Chronic (3) Epigastric abdominal pain: Code(s): R10.13 - Epigastric pain Status: Acute (4) Chest pain due to GERD: Code(s): R07.9 - Chest pain, unspecified; K21.9 - Gastro-esophageal reflux disease without esophagitis Status: Acute Plan Chest pain, likely secondary to GERD Epigastric abd pain Nausea/vomiting, episodic Loose stools - Pt is a 33 y/o WM with anxiety, alcohol abuse and hx of alcohol withdrawal seizures. - He presented to the ED at [facility] on 07/08/18 with complaints of a one month hx of worsening epigastric/lower chest pain with episodic nausea/vomiting. The epigastric/lower sternal pain he has been having the last month occurs sporadically throughout the day and night and is a burning pain which radiates up his chest. He has had worsening episodes of this pain especially in the mornings. He will have episodic vomiting during the night and in the morning. He denies any NSAID use. He denies any hematemesis or coffee-ground emesis. Pt reports that he has had an endoscopy before when he was in the 4th grade but cannot recall the specific results. - He has also been having loose stools the last 4 months since resuming daily alcohol use. If any diarrhea during admission check stool studies. - Appreciate consult from GI - Pt to undergo EGD/colonoscopy today - Protonix 40mg IV BID - Stool is negative for C. diff. Stool culture is pending. - Repeat labs in AM - Zofran PRN for nausea - Tylenol PRN pain - Supportive care - DVT prophylaxis with SCDs Alcohol abuse Hx of alcohol withdrawal seizures - He states that last year after an admission for alcohol withdrawal seizure and alcohol abuse he went to outpt alcohol rehab and was doing well and abstaining from alcohol up until about 4 months ago. He has been drinking anywhere from 3-5 alcoholic beverages per night which he states he does to relieve work stress. - Alcohol withdrawal precautions - Librium 25mg Q8H - [facility] protocol medications - Thiamine/Folic acid/MVI - Counselling provided regarding cessation. He states that once he establishes with a PCP this coming week he wants to be referred to [facility] for abuse counselling. We will try to arrange this with [facility] CM on Monday. Anxiety - For the last month he has had increased anxiety which he states induced episodic nausea/vomiting. This has been an issue intermittently since he was quite young. - Ativan PRN for alcohol withdrawal precautions. - He reports that he has an appt to establish with his PCP, Dr. Paiz, on Monday07/11/18 Tobacco abuse - Pt counselled about cessation - Nicotine patch daily Progress Note: Quality VTE Deep Vein Thrombosis/Pulmonary Embolism Present on Admission: No
--- NOTE | 2018-07-09 11:12 | GIPROC ---
[facility] [address] [facility]. [facility], [address] COLONOSCOPY PROCEDURE REPORT EXAM DATE: 07/09/2018 PATIENT NAME: Arjun Watson MR #: [id number] BIRTHDATE: 1985 ENDOSCOPIST: Nilda Mendoza MD ORDER #: [id number] ASSEMBLER CONVERTIBLE TOP: Alen Ceballos and Michelle Paredes STATUS: inpatient INDICATIONS: The patient is a 33 yr old male here for a colonoscopy due to diarrhea, nausea, vomiting PROCEDURE PERFORMED: Colonoscopy with biopsy MEDICATIONS: Per Anesthesia and None. PREP QUALITY: fair PREP TYPE:Other: ESTIMATED BLOOD LOSS: None CONSENT: The patient understands the risks and benefits of the procedure and understands that these risks include, but are not limited to: sedation, allergic reaction, infection, perforation and/or bleeding. Alternative means of evaluation and treatment include, among others: physical exam, x-rays, and/or surgical intervention. The patient elects to proceed with this endoscopic procedure. medical equipment was checked for proper function. Hand hygiene and appropriate measures for infection prevention was taken. After the risks, benefits and alternatives of the procedure were thoroughly explained, Informed consent was verified, confirmed and timeout was successfully executed by the treatment team. A digital exam revealed internal hemorrhoids The Pentax EC-3490Li endoscope was introduced through the anus and advanced to the cecum, which was identified by both the appendix and ileocecal valve. The instrument was then slowly withdrawn as the colon was fully examined. COLON FINDINGS: Normal colonoscopy-random biopsu from ascending, descending. Retroflexed views revealed internal hemorrhoids and Retroflexed views revealed small internal hemorrhoids The scope was then completely withdrawn from the patient and the procedure terminated. PROCEDURE WITHDRAWAL TIME:6minutes ADVERSE EVENTS: There were no complications. IMPRESSIONS: 1. Normal colonoscopy-random biopsu from ascending, descending 2. Retroflexed views revealed internal hemorrhoids 3. Retroflexed views revealed small internal hemorrhoids 4. Revealed internal hemorrhoids RECOMMENDATIONS: 1. Await biopsy results. Biopsy results will not be ready for 7-10 days. If you don't hear from us in two weeks, call our office for results. 2. Benefiber 2 tsp daily 3. Avoid NSAIDS and Aspirin 4. Probiotics from any [facility] or [employer] food store RECALL: Return 10 years Colonoscopy Nilda Mendoza MD eSigned: Nilda Mendoza MD 07/09/2018 11:12 AM cc:
--- NOTE | 2018-07-09 11:15 | GIPROC ---
[facility] [address] [facility]. [facility], [address] EGD PROCEDURE REPORT EXAM DATE: 07/09/2018 PATIENT NAME: Arjun Watson MR #: [id number] BIRTHDATE: 1985 ATTENDING: Nilda Mendoza MD ORDER #: [id number] CIVIL DESIGN TECHNICIAN: Alen Ceballos and Michelle Paredes STATUS: inpatient INDICATIONS: The patient is a 33 yr old male here for an EGD due to nausea, vomiting , abdominal pain, diarrhea PROCEDURE PERFORMED: EGD w/ biopsy MEDICATIONS: Per Anesthesia and None. TOPICAL ANESTHETIC: none CONSENT: The patient understands the risks and benefits of the procedure and understands that these risks include, but are not limited to: sedation, allergic reaction, infection, perforation and/or bleeding. Alternative means of evaluation and treatment include, among others: physical exam, x-rays, and/or surgical intervention. The patient elects to proceed with this endoscopic procedure. medical equipment was checked for proper function. Hand hygiene and appropriate measures for infection prevention was taken. After the risks, benefits and alternatives of the procedure were thoroughly explained, Informed consent was verified, confirmed and timeout was successfully executed by the treatment team. The patient was anesthetized with topical anesthesia and the EC-3490Li (Pedi C) endoscope was introduced through the mouth and advanced to the second portion of the duodenum. Retroflexed views revealed a hiatal hernia The gastroscope was then slowly withdrawn and removed. Gastritis antrum-biopsy duodenum normal-biopsy esophagitis distal esophagus-biopsy gastric diverticulum fundus. ADVERSE EVENTS: There were no complications. IMPRESSIONS: 1. Gastritis antrum-biopsy duodenum normal-biopsy esophagitis distal esophagus-biopsy gastric diverticulum fundus 2. Retroflexed views revealed a hiatal hernia RECOMMENDATIONS: 1. Await biopsy results. Biopsy results will not be ready for 7-10 days. If you don't hear from us in two weeks, call our office for biopsy results. 2. Anti-reflux regimen 3. Continue PPI 4. Ok to dc home from gi point if tolerated diet advance diet avoid etoh fu gi in 4 weeks PATIENT CONDITION: stable DISPOSITION: Inpatient REPEAT EXAM: Return 3 years EGD Nilda Mendoza MD eSigned: Nilda Mendoza MD 07/09/2018 11:15 AM cc: PATIENT NAME: Arjun Watson MR#: [id number]
[2018-07-09] MEDS ORDERED: Simethicone 125 MG Chew Tablet PO ONE (12:03)
[2018-07-09] MEDS: Pantoprazole Inj 40 MG Vial IV.PUSH SCH (12:20)
[2018-07-09 12:26] VITALS: BP 138/83; PULSE 97; TEMP 98.2; O2SAT 100
[2018-07-09] MEDS ORDERED: Simethicone 125 MG Chew Tablet PO PRN (18:00)
--- NOTE | 2018-07-09 21:44 | ECG ---
Date Performed: 07/08/2018 Time Performed: 12:02:27 PTAGE: 33 years EKG: Sinus rhythm WITH OCCASIONAL SUPRAVENTRICULAR PREMATURE COMPLEXES BORDERLINE ECG PREVIOUS TRACING : 07/08/2018 08.19 Since the previous tracing, no significant change noted DOCTOR: Alethea Hernández Interpretating Date/Time 07/09/2018 21:42:58
== END 2018-07-09 14:34 | disposition left against medical advice (07) ==
LOC: NEPC 01:50 → NEDA 01:50 → NEPFCDU 11:31
PROVIDERS: ADMIT Hospitalist; ATTEND Hospitalist
PROC: PANENDO (2018-07-09 10:38)